=== PATIENT | female | born 1990 | race Caucasian/White ===

== ENCOUNTER 2019-02-08 06:34 | Emergency (ER) | payer BC ==
[~2019-02-08 06:34] MED LIST: CIPR-345 PO; GENT3.5O3 OP; LOR5/325 PO; METR-1 PO; ONDA8TAB98 PO; PER PO; PROM-110 PO
[2019-02-08] MEDS ORDERED: IBUPROFEN 800 MG TAB PO ONE (06:50)
[2019-02-08] MEDS ORDERED: APAP/HYDROCODONE 325/5 TAB PO ONE (06:50)
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
[2019-02-08] MEDS ORDERED: DIPHTH/TETANUS/ACEL. PERTUSSIS IM ONLY ONE (07:35)
[2019-02-08] MEDS ORDERED: OXYC-865 PO (07:38)
[2019-02-08 07:40] VITALS: BP 114/72
== END 2019-02-08 07:57 | disposition home or self-care (01) ==
LOC: ER 06:56
DX: T21.01XA Burn of unspecified degree of chest wall, initial encounter (principal)
CPT/HCPCS: 99283